=== PATIENT | female | born 1960 | race Caucasian/White ===

== ENCOUNTER 2016-10-03 20:29 | Emergency (ER) | payer OTHER ==
[~2016-10-03] VITALS: Ht 152.4 cm; Wt 90.9 kg
[~2016-10-03 20:29] MED LIST: CYCL5TAB PO; IBUP200C PO; LISI40TA PO; RES15 PO; TRAM50TA2 PO
[2016-10-03 20:32] VITALS: BP 163/75; PULSE 110; RESP 20; O2SAT 98
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
[2016-10-03] MEDS ORDERED: IBUP400T22 PO (21:44)
[2016-10-03 22:12] VITALS: BP 177/103; PULSE 96; RESP 18; O2SAT 98
== END 2016-10-03 22:13 | disposition home or self-care (01) ==
LOC: SED 20:29
DX: S40.021A Contusion of right upper arm, initial encounter (principal); V43.63XA Car passenger injured in collision with pick-up truck in traffic accident, initial encounter; Y93.9 Activity, unspecified; Y92.410 Unspecified street and highway as the place of occurrence of the external cause; Y99.8 Other external cause status; I10 Essential (primary) hypertension; Z90.710 Acquired absence of both cervix and uterus; Z88.5 Allergy status to narcotic agent